=== PATIENT | female | born 1970 | race Caucasian/White ===

== ENCOUNTER 2019-01-22 13:21 | Emergency (ER) | payer OTHER ==
[~2019-01-22] VITALS: Ht 170.2 cm; Wt 70.8 kg
--- OUTSIDE RECORDS SUMMARY | ~2019-01-22 | XMS | Clinical Summary ---
Demographics + + + | Address | [address] | | | [place] [address] | + + + | Home Phone | | + + + | Preferred Language | Unknown | + + + | Marital Status | | + + + | Holiness Affiliation | Unknown | + + + | Race | Unknown | + + + | Ethnic Group | Unknown | + + + Author + + + | Author | [facility] | | | and [place] | + + + | Organization | [facility] | | | and [place] | + + + | Address | Unknown | + + + | Phone | Unavailable | + + + Support + + +---------+ + | Name | Relationship | Address | Phone | + + +---------+ + | Eddie Deng | ECON | Unknown | | + + +---------+ + Care Team Providers + +------+ + | Care Residential Support Specialist Name | Role | Phone | + +------+ + | No, Physician | PCP | Unavailable | + +------+ + Allergies No Known Allergies Medications No known medications Active Problems No known active problems Social History + +-------+ +--------+------+ | Tobacco Use | Types | Packs/Day | Years | Date | | | | | Used | | + +-------+ +--------+------+ | Former Smoker | | | 30 | | + +-------+ +--------+------+ + + +---------+ + | Alcohol Use | Drinks/We | oz/Week | Comments | | | ek | | | + + +---------+ + | No | 0 | 0.0 | | | | Standard | | | | | drinks or | | | | | | | | | | equivalen | | | | | t | | | + + +---------+ + + + + | Sex Assigned at | Date Recorded | | | | + + + | Not on file | | + + + + + + + | Job Start Date | Occupation | Industry | + + + + | Not on file | Not on file | Not on file | + + + + + + + + | Travel History | Travel Start | Travel End | + + + + + + | No recent travel history available. | + + Last Filed Vital Signs + + + + | Vital Sign | Reading | Time Taken | + + + + | Blood Pressure | 139/68 | 04/07/20164 PST | + + + + | Pulse | 91 | 04/07/20161133 PST | + + + + | Temperature | 37.3 C (99.1 F) | 04/07/20161133 PST | + + + + | Respiratory Rate | 18 | 04/07/20161133 PST | + + + + | Oxygen Saturation | 98% | 04/07/20161133 PST | + + + + | Inhaled Oxygen | - | - | | Concentration | | | + + + + | Weight | 70.8 kg (156 lb) | 04/07/20161133 PST | + + + + | Height | 170.2 cm (5' 7") | 04/07/20161133 PST | + + + + | Body Mass Index | 24.43 | 04/07/20161133 PST | + + + + Plan of Treatment + + + + + | Health Maintenance | Due Date | Last Done | Comments | + + + + + | Vaccine: | | | | | Dtap/Tdap/Td (1 - | 0 | | | | Tdap) | | | | + + + + + | Cervical Cancer | | | | | Screening (Pap) | 1 | | | + + + + + | Breast Cancer | | | | | Screening | 6 | | | + + + + + | Vaccine: Influenza | | | | | (#1) | 9 | | | + + + + + Results Not on filefrom Last 3 Months Advance Directives Patient has advance care planning documents on file. For more information, please contact:[facility] [place] [address]
--- OUTSIDE RECORDS SUMMARY | ~2019-01-22 | XMS | Clinical Summary ---
Demographics + + + | Address | [address] | | | [place] [address] | + + + | Home Phone | | + + + | Preferred Language | Unknown | + + + | Marital Status | | + + + | Oriental Orthodox Affiliation | Unknown | + + + | Race | Unknown | + + + | Ethnic Group | Unknown | + + + Author + + + | Author | [facility] | | | and [place] | + + + | Organization | [facility] | | | and [...] Team Providers + +------+ + | Care Life Sciences Instructor Name | Role | Phone | + [...] on file. For more information, please contact:[facility] [place] [address]
[~2019-01-22 13:21] MED LIST: BUSPIRONE HCL10 MG PO; CYCLOBENZAPRINE10 MG PO; PROVERA10 MG PO; SERTRALINE HCL100 MG PO; ULTRAM50 MG PO; VENTOLIN HFA18 GM INH
== END 2019-01-22 13:30 | disposition home or self-care (01) ==
LOC: ED 13:21
DX: M25.511 Pain in right shoulder (principal)

== ENCOUNTER 2019-05-02 20:06 | Emergency (ER) | payer SELFPAY ==
[~2019-05-02] VITALS: Ht 170.2 cm; Wt 70.3 kg
[2019-05-02] MEDS ORDERED: WELLBUTRIN SR100 MG PO (20:26)
== END 2019-05-02 22:18 | disposition home or self-care (01) ==
LOC: ED 20:06
DX: R11.2 Nausea with vomiting, unspecified (principal); F17.200 Nicotine dependence, unspecified, uncomplicated; Z79.899 Other long term (current) drug therapy
CPT/HCPCS: 96361; 96374; 99283-25; J2765; J7030